=== PATIENT | male | born 1960 | race Caucasian/White ===

== ENCOUNTER → 2017-01-02 | Outpatient (CLI) | payer MEDICARE, OTHER | LOC: RAD 10:12 | DX: N20.0 Calculus of kidney (principal) | CPT/HCPCS: 74000 ==

== ENCOUNTER → 2017-03-17 | Outpatient (CLI) | payer MEDICARE, OTHER ==
[2017-03-17 12:17] LABS: RED BLOOD COUNT 5.23 M/UL (4.20-5.50); WHITE BLOOD COUNT 5.4 K/UL (4.5-11.0)
[2017-03-17 12:32] LABS: BUN/CREATININE RATIO 27 (0-10)
== END ==
LOC: RAD 11:02
PROVIDERS: Internal Medicine Nephrology
DX: N18.3 Chronic kidney disease, stage 3 (moderate) (principal); M25.511 Pain in right shoulder; M54.9 Dorsalgia, unspecified; M51.37 Other intervertebral disc degeneration, lumbosacral region
CPT/HCPCS: 72100; 73030; 80053; 85007; 85027

== ENCOUNTER → 2017-04-19 | Outpatient (CLI) | payer MEDICARE, OTHER | LOC: KOH-I 09:46 | DX: D69.6 Thrombocytopenia, unspecified (principal); K76.0 Fatty (change of) liver, not elsewhere classified; R16.1 Splenomegaly, not elsewhere classified | CPT/HCPCS: 76705 ==

== ENCOUNTER → 2021-11-30 | Day surgery (SDC) | payer MEDICARE, OTHER ==
[~2021-11-30] MED LIST: CALCIUM500 MG PO; CLARITIN10 MG PO; DAILY VALUE1 EACH PO; DEPAKOTE500 MG PO; FLOMAX 0.4 MG0.4 MG PO; FLOVENT DISKUS50 MCG INH; IBUPROFEN600 MG PO; INTRINSI B12-F1 EACH PO; KEPPRA 500 MG500 MG GT; LIPITOR TAB 1010 MG PO; NORCO 7.5-3251 EACH PO; PROTONIX 40 MG40 M1 PO; ZOLOFT50 MG PO
== END | disposition home or self-care (01) ==
LOC: OR 07:40
DX: D12.4 Benign neoplasm of descending colon (principal); D12.2 Benign neoplasm of ascending colon; D12.5 Benign neoplasm of sigmoid colon; K57.30 Diverticulosis of large intestine without perforation or abscess without bleeding; N40.0 Benign prostatic hyperplasia without lower urinary tract symptoms; N18.30 Chronic kidney disease, stage 3 unspecified; F17.210 Nicotine dependence, cigarettes, uncomplicated; E78.5 Hyperlipidemia, unspecified; M06.9 Rheumatoid arthritis, unspecified; K21.9 Gastro-esophageal reflux disease without esophagitis; Z79.899 Other long term (current) drug therapy; Z20.822 Contact with and (suspected) exposure to COVID-19
CPT/HCPCS: J2704; J7120

== ENCOUNTER → 2022-04-19 | Outpatient (CLI) | payer MEDICARE, OTHER ==
[2022-04-19 09:59] LABS: HEMOGLOBIN 14.4 gm/dl (14.0-17.5); RED BLOOD COUNT 4.67 M/UL (4.20-5.50)
[2022-04-19 10:14] LABS: BUN/CREATININE RATIO 24 (0-10)
== END ==
LOC: LAB 09:09
PROVIDERS: Nurse Practitioner Family
DX: E78.5 Hyperlipidemia, unspecified (principal); E55.9 Vitamin D deficiency, unspecified; N40.0 Benign prostatic hyperplasia without lower urinary tract symptoms; Z79.899 Other long term (current) drug therapy
CPT/HCPCS: 36415; 80053; 80061; 82570; 82607; 83036; 84156; 84439; 84443; 85025

== ENCOUNTER → 2022-06-08 | Outpatient (CLI) | payer MEDICARE, OTHER | LOC: KOH-I 05-30 14:30 | DX: M51.16 Intervertebral disc disorders with radiculopathy, lumbar region (principal); M51.17 Intervertebral disc disorders with radiculopathy, lumbosacral region | CPT/HCPCS: 72148 ==